=== PATIENT | male | born 1965 | race Caucasian/White ===

== ENCOUNTER 2024-08-03 14:26 | Outpatient (CLI) | payer BC, SELFPAY ==
--- OUTSIDE RECORDS SUMMARY | 2024-08-03 14:31 | XMS_ITS | Clinical Summary ---
Author Organization [facility] Address [address] [place] [address] Care Team Providers Care Electric Lift Truck Driver Name Role Phone Unavailable Primary Care Provider Unavailabl e Social History Tobacco Use Types Packs/Day Years Used Date Smoking Tobacco: Never Assessed Sex and Gender Information Value Date Recorded Sex Assigned at Not on file Legal Sex Male 3:01 PM CDT Gender Identity Not on file Sexual Orientation Not on file Plan of Treatment Health Maintenance Due Date Last Done Comments DTAP/TDAP/TD VACCINES (1 - Tdap) 1982 COLORECTAL SCREENING 2008 Colorectal Cancer Screening 2008 FIT-DNA Q 3 years 2008 FIT/FOBT Q 1 year 2008 Flex Sig/CT Colonography Q 5 years 2008 ZOSTER VACCINE (1 of 2) 2013 INFLUENZA VACCINE (#1) 2023 RSV VACCINE (60+ or ) (1 - 1-dose 75+ series) 2038
--- OUTSIDE RECORDS SUMMARY | 2024-08-03 14:31 | XMS_ITS | Referral Summary ---
Author Organization [facility] [place] [address] Address [address] [place] [address] Care Team Providers Care Machine Bender Name Role Phone Tobias Hutchins MD Primary Care Provider Anthony Fernandez PT Unavailable Unavailable Allergies No known active allergies Medications No known medications Active Problems No known active problems Social History Tobacco Use Types Packs/Day Years Used Date Smoking Tobacco: Never Personal Safety Answer Date Recorded Getting School Help Needed Not on file 06/14 Sex and Gender Information Value Date Recorded Sex Assigned at Not on file Legal Sex Male 9:31 AM FURNACE ERECTOR Gender Identity Not on file Sexual Orientation Not on file Last Filed Vital Signs Vital Sign Reading Time Taken Comments Blood Pressure 111/75 12/08/2023 3:44 PM CDT Pulse 66 12/08/2023 3:44 PM CDT Temperature 36.9 C (98.5 F) 04/23/2021 9:49 AM FURNACE ERECTOR Respiratory Rate 12 04/23/2021 9:49 AM FURNACE ERECTOR Oxygen Saturation 97% 04/23/2021 9:49 AM FURNACE ERECTOR Inhaled Oxygen Concentration - - Weight 79.4 kg (175 lb) 12/08/2023 3:44 PM CDT Height 175.3 cm (5' 9 ) 12/08/2023 3:44 PM CDT Body Mass Index 25.84 12/08/2023 3:44 PM CDT Plan of Treatment Not on file Insurance BLUE ACCESS [place] Care Teams Machine Bender Relationship Specialty Start Date End Date Tobias Hutchins MD [address] [facility] [address] [place] [address] PCP - General Family Medicine 04/23/21 Anthony Fernandez, PT Physical Therapist Physical Therapy 12/12/23
--- OUTSIDE RECORDS SUMMARY | 2024-08-03 14:31 | XMS_ITS | Encounter Summary ---
Author Organization [facility] Address [address] [place] [address] Phone Care Team Providers Care Soil Surveyor Name Role Phone Surjit Cordova MD Primary Care Provider [phone] Reason for Visit * Reason Comments Medication Refill Encounter Details Date Type Department Care Team (Late st Contact Info) Description 02/04/2020 Refill [facility] Medical [facility] - Primary Care - [place] [address] [place] [id number] Surjit Cordova MD [address] [place] [address] Medication Refill Social History Tobacco Use Types Packs/Day Years Used Date Smoking Tobacco: Never Smokeless Tobacco: Never PHQ-2 Answer Date Recorded PHQ-2 Score 0 12/15/2018 Sex and Gender Information Value Date Recorded Sex Assigned at Not on file Legal Sex Male 2:53 PM CDT Gender Identity Not on file Sexual Orientation Not on file documented as of this encounter Miscellaneous Notes * Telephone Encounter - Marina Lawrence CMA - 02/04/2020 2:19 PM CST Rerouting HT TEST DATA ACQUISITION TECHNICIAN documented in this encounter Plan of Treatment Not on file documented as of this encounter Visit Diagnoses Not on filedocumented in this encounter Additional Health Concerns Assessment Noted Time PHQ-9 Depression Total Score: 0 09/12/19 19 2:00 PM CDT documented as of this encounter Care Teams Soil Surveyor Relationship Specialty Start Date End Date Surjit Cordova MD [address] [place] [address] PCP - General Internal Medicine 09/11/18 06/18/23 documented as of this encounter
--- OUTSIDE RECORDS SUMMARY | 2024-08-03 14:31 | XMS_ITS | Clinical Summary ---
Author Organization [facility] [address] Address [address] [place] [address] Care Team Providers Care Calendar Control Clerk Blood Bank Name Role Phone Tobias Hutchins MD Primary [...] on file Legal Sex Male 9:31 AM FABRICATION OPERATOR Gender Identity Not on file Sexual Orientation Not on file Obstetrics History Last Filed Vital Signs Vital Sign Reading Time Taken Comments Blood Pressure 111/75 12/08/2023 3:44 PM CDT Pulse 66 12/08/2023 3:44 PM CDT Temperature 36.9 C (98.5 F) 04/23/2021 9:49 AM FABRICATION OPERATOR Respiratory Rate 12 04/23/2021 9:49 AM FABRICATION OPERATOR Oxygen Saturation 97% 04/23/2021 9:49 AM FABRICATION OPERATOR Inhaled Oxygen Concentration - - Weight 79.4 kg (175 lb) 12/08/2023 3:44 PM CDT Height 175.3 cm (5' 9 ) 12/08/2023 3:44 PM CDT Body Mass Index 25.84 12/08/2023 3:44 PM CDT Plan of Treatment Health Maintenance Due Date Last Done Comments Colon Cancer Screening-Colonoscopy 1963 Depression Screening 1963 Hepatitis C Screening 1963 Prostate Cancer Screening-PSA 1963 Hepatitis B Screening 1981 Regular Well Visit/Exam 18-64 1981 Zoster Vaccine (1 of 2) 2013 Covid-19 Vaccine (3 - 2023-2 5 season) 2023 06/18/2020, 05/26/2020 Influenza Vaccine (#1) 2023 0, 01/07/2019 DTaP/Tdap/Td Vaccine (2 - Td or Tdap) 04/01/2029 04/01/2019 Pneumococcal vaccine <65 Aged Out No longer eligible based on patient's age to complete this topic Insurance [place] Care Teams Calendar Control Clerk Blood Bank Relationship Specialty Start Date End Date Tobias Hutchins MD [address] [facility] [address] [place] [address] PCP - General Family Medicine 04/23/21 Anthony Fernandez PT Physical Therapist Physical Therapy 12/12/23
--- OUTSIDE RECORDS SUMMARY | 2024-08-03 14:31 | XMS_ITS | Clinical Summary ---
Author Organization [facility] Address [address] [place] [address] Phone Care Team Providers Care Saw Boss Name Role Phone Unavailable Primary Care Provider Unavailabl e Allergies No known active allergies Medications OMEPRAZOLE PO Take by mouth. Active lisinopril (PRINIVIL, ZESTRIL) 40 MG Tablet TAKE ONE TABLET BY MOUTH ONCE DAILY 90 Tablet 08/10/2020 Active Active Problems Problem Noted Date Diagnosed Date Hyperlipidemia Hypertension, essential GERD (gastroesophageal reflux disease) Immunizations Immunization Administration Dates Next Due Influenza Vaccine greater than 3 yrs 01/07/2019 TDAP Vaccine 04/01/2019 Family History Medical History Relation Name Comments Cancer Father Skin Heart Disease Father PTCA Heart Disease Maternal Grandfather Heart Disease Maternal Grandmother ? Heart Disease Maternal Uncle x2 Relation Name Status Comments Father Maternal Grandfather Maternal Grandmother Maternal Uncle Social History Tobacco Use Types Packs/Day Years Used Date Smoking Tobacco: Never Smokeless Tobacco: Never Tobacco Cessation:Counseling Given: No PHQ-2 Answer Date Recorded PHQ-2 Score 0 12/15/2018 Sex and Gender Information Value Date Recorded Sex Assigned at Not on file Legal Sex Male 2:53 PM CDT Gender Identity Not on file Sexual Orientation Not on file Last Filed Vital Signs Vital Sign Reading Time Taken Comments Blood Pressure 122/78 04/01/2019 8:07 AM CAUSTIC PREPARER Pulse 93 04/01/2019 8:07 AM CAUSTIC PREPARER Temperature 36.8 C (98.3 F) 04/01/2019 8:07 AM CAUSTIC PREPARER Respiratory Rate 12 04/01/2019 8:07 AM CAUSTIC PREPARER Oxygen Saturation 97% 04/01/2019 8:07 AM CAUSTIC PREPARER Inhaled Oxygen Concentration - - Weight 87.7 kg (193 lb 4.8 oz) 04/01/2019 8:07 A M CAUSTIC PREPARER Height 172.7 cm (5' 8 ) 04/01/2019 8:07 AM CAUSTIC PREPARER Body Mass Index 29.39 04/01/2019 8:07 AM CAUSTIC PREPARER Plan of Treatment Health Maintenance Due Date Last Done Comments Hepatitis C Virus (HCV) Screening 1963 Colonoscopy 2008 Colorectal Cancer Screening 2008 Cologuard 2013 Immunochemical Fecal Occult Blood 2013 Pneumococcal Immunization (5 0+ years) (1 of 1 - PCV) 2013 Zoster Immunization (1 of 2) 2013 SARS-COV-2 Immunization (3 - season) 2023 06/18/2020, 05/26/2020 Influenza Immunization (Seas on Ended) 2024 01/07/2019 Respiratory Syncytial Virus (RSV) Immunization (Adult) (1 - 1-dose 75+ series) 2038 PSA Discussion Discontinued 03/09/2018 DTaP/Tdap/Td Immunization Discontinued 04/01/2019 Hepatitis B Immunization Aged Out No longer eligible based on patient's age to complete this topic Meningococcal Immunization (ACWY) Aged Out No longer eligible based on patient's age to complete this topic Rotavirus Immunization Aged Out No lo nger eligible based on patient's age to complete this topic Procedures Procedure Name Priority Date/Time Associated Diagnosis Comments PSA SCREEN Routine 03/09/2018 from Last 3 Months or Most Recently Relevant to Health Maintenance Results * PSA SCREEN (03/09/2018) PSA (PROSTATE SPECIFIC ANTIGEN) 1.8 ng/mL Blood specimen (specimen) 03/09/2018 Miah Roberson DO CHEMISTRY ORDERABLES Final Result from Last 3 Months or Most Recently Relevant to Health Maintenance Insurance [facility]
== END 2024-08-03 14:27 | disposition home or self-care (01) ==
LOC: ANHBWCAUD 14:27
PROVIDERS: PCP Family Medicine; Visit Provider Otolaryngology
DX: H90.3 Sensorineural hearing loss, bilateral (principal); H93.19 Tinnitus, unspecified ear
CPT/HCPCS: 92557; 92567

== ENCOUNTER 2024-10-25 01:58 | Day surgery (SDC) | payer BC, SELFPAY ==
[2024-10-08 12:20] VITALS: BMI 27.1
--- OUTSIDE RECORDS SUMMARY | 2024-10-25 02:01 | XMS_ITS | Clinical Summary ---
Author Organization [facility] [address] Address [address] [place] [address] Care Team Providers Care Farm Loan Representative Name Role Phone Tobias Hutchins MD Primary [...] on file Legal Sex Male 9:31 AM TRACK MAN Gender Identity Not on file Sexual Orientation Not on file Obstetrics History Last Filed Vital Signs Vital Sign Reading Time Taken Comments Blood Pressure 111/75 12/08/2023 3:44 PM CDT Pulse 66 12/08/2023 3:44 PM CDT Temperature 36.9 C (98.5 F) 04/23/2021 9:49 AM TRACK MAN Respiratory Rate 12 04/23/2021 9:49 AM TRACK MAN Oxygen Saturation 97% 04/23/2021 9:49 AM TRACK MAN Inhaled Oxygen Concentration - - Weight 79.4 kg (175 lb) 12/08/2023 3:44 PM CDT Height 175.3 cm (5' 9) 12/08/2023 3:44 PM CDT Body Mass Index [...] season) 2023 06/18/2020, 05/26/2020 Influenza Vaccine (#1) 2024 0, 01/07/2019 DTaP/Tdap/Td Vaccine (2 - Td or Tdap) 04/01/2029 04/01/2019 Pneumococcal vaccine <65 Aged Out No longer eligible based on patient's age to complete this topic Insurance [employer] [place] Care Teams Farm Loan Representative Relationship Specialty Start Date End Date Tobias Hutchins MD [address] [facility] [address] [place] [address] PCP - General Family Medicine 04/23/21 Anthony Fernandez PT Physical Therapist Physical Therapy 12/12/23
--- OUTSIDE RECORDS SUMMARY | 2024-10-25 02:01 | XMS_ITS | Clinical Summary ---
Author Organization [facility] Address [address] [place] [address] Phone Care Team Providers Care Sand Conditioner Machine Name Role Phone Unavailable Primary Care Provider [...] Comments Blood Pressure 122/78 04/01/2019 8:07 AM EYELET MAKER Pulse 93 04/01/2019 8:07 AM EYELET MAKER Temperature 36.8 C (98.3 F) 04/01/2019 8:07 AM EYELET MAKER Respiratory Rate 12 04/01/2019 8:07 AM EYELET MAKER Oxygen Saturation 97% 04/01/2019 8:07 AM EYELET MAKER Inhaled Oxygen Concentration - - Weight 87.7 kg (193 lb 4.8 oz) 04/01/2019 8:07 A M EYELET MAKER Height 172.7 cm (5' 8) 04/01/2019 8:07 AM EYELET MAKER Body Mass Index 29.39 04/01/2019 8:07 AM EYELET MAKER Plan of Treatment Health Maintenance Due Date Last Done Comments Hepatitis C Virus (HCV) Screening 1963 Cologuard 2008 Colonoscopy 2008 Colorectal Cancer Screening 2008 Immunochemical Fecal Occult Blood 2008 Pneumococcal Immunization (5 0+ years) (1 of 1 - PCV) 2013 Zoster Immunization (1 of 2) 2013 SARS-COV-2 Immunization (3 - season) 2023 06/18/2020, 05/26/2020 Influenza Immunization (#1) 2024 01/07/2019 Respiratory Syncytial Virus (RSV) Immunization (Adult) (1 - 1-dose 75+ series) 2038 PSA Discussion Discontinued 03/09/2018 DTaP/Tdap/Td Immunization Discontinued 04/01/2019 Hepatitis B Immunization Aged Out No longer eligible based on patient's age to complete this topic Human Papillomavirus (HPV) Immunization Aged Out No longer eligible based [...] Most Recently Relevant to Health Maintenance Insurance [facility]
--- OUTSIDE RECORDS SUMMARY | 2024-10-25 02:01 | XMS_ITS | Encounter Summary ---
Author Organization [facility] Address [address] [place] [address] Phone Care Team Providers Care Head Of Sales Promotion Name Role Phone Surjit Cordova MD Primary Care Provider [phone] Reason for Visit * Reason Comments Medication Refill Encounter Details Date Type Department Care Team (Late st Contact Info) Description 02/04/2020 Refill [facility] Medical [facility] - Primary Care - [place] [address] [place] [id number] Surjit Cordova MD [address] [place] [address] Medication Refill Social History Tobacco Use Types [...] CMA - 02/04/2020 2:19 PM CST Rerouting NSED PHYSICAL THERAPY ASSISTANT documented in this encounter Plan of Treatment Not on file documented as of this encounter Visit Diagnoses Not on filedocumented in this encounter Additional Health Concerns Assessment Noted Time PHQ-9 Depression Total Score: 0 09/12/19 19 2:00 PM CDT documented as of this encounter Care Teams Head Of Sales Promotion Relationship Specialty Start Date End Date Surjit Cordova MD [address] [place] [address] PCP - General Internal Medicine 09/11/18 06/18/23 documented as of this encounter
--- OUTSIDE RECORDS SUMMARY | 2024-10-25 02:01 | XMS_ITS | Clinical Summary ---
Author Organization [facility] Address [address] [place] [address] Care Team Providers Care Open Hearth Helper Name Role Phone Unavailable Primary Care Provider [...] (1 of 2) 2013 INFLUENZA VACCINE (#1) 2024 RSV VACCINE (60+ or ) (1 - 1-dose 75+ series) 2038
--- OUTSIDE RECORDS SUMMARY | 2024-10-25 02:01 | XMS_ITS | Referral Summary ---
Author Organization [facility] [address] Address [address] [place] [address] Care Team Providers Care Stage Director Name Role Phone Tobias Hutchins MD Primary [...] on file Legal Sex Male 9:31 AM WILDLIFE CONTROL OPERATOR Gender Identity Not on file Sexual Orientation Not on file Last Filed Vital Signs Vital Sign Reading Time Taken Comments Blood Pressure 111/75 12/08/2023 3:44 PM CDT Pulse 66 12/08/2023 3:44 PM CDT Temperature 36.9 C (98.5 F) 04/23/2021 9:49 AM WILDLIFE CONTROL OPERATOR Respiratory Rate 12 04/23/2021 9:49 AM WILDLIFE CONTROL OPERATOR Oxygen Saturation 97% 04/23/2021 9:49 AM WILDLIFE CONTROL OPERATOR Inhaled Oxygen Concentration - - Weight 79.4 kg (175 lb) 12/08/2023 3:44 PM CDT Height 175.3 cm (5' 9) 12/08/2023 3:44 PM CDT Body Mass Index 25.84 12/08/2023 3:44 PM CDT Plan of Treatment Not on file Insurance BLUE ACCESS [place] Care Teams Stage Director Relationship Specialty Start Date End Date Tobias Hutchins MD [address] [facility] [address] [place] [address] PCP - General Family Medicine 04/23/21 Anthony Fernandez, PT Physical Therapist Physical Therapy 12/12/23
[2024-10-25 08:45] VITALS: BP 122/88; PULSE 61; RESP 18; TEMP 36.8; O2SAT 96
--- NOTE | 2024-10-25 08:54 | WPDANESEPPF ---
Anes - Initial Pre Proc Eval Procedure: Operation Date: 10/25/24 09:30 Proposed Procedures p Screening Colonoscopy - Jose Murry DO Date/Time: 10/25/24 08:54 Surgeon: Jose Murry DO Pre Op Diagnosis: Neoplasm screening Patient Data Age: 59 Gender: M Height: 1.73 m Weight: 78.2 kg Last Vital Signs Temp 36.8 C 10/25/24 08:45 Pulse 61 10/25/24 08:45 Resp 18 10/25/24 08:45 BP 122/88 10/25/24 08:45 Pulse Ox 96 10/25/24 08:45 O2 Del Method Room Air 10/25/24 08:45 Allergies Allergy/AdvReac Type Severity Reaction Status Date / Time No Known Allergies Allergy Verified 10/08/24 12:19 Home Medications ?Medication ?Instructions ?Recorded ?Confirmed ?Type ascorbic acid (vitamin C) 500 mg 500 mg PO DAILY 07/10/20 10/25/24 History capsule cholecalciferol (vitamin D3) 25 25 mcg PO DAILY 07/10/20 10/25/24 History mcg (1,000 unit) capsule omeprazole 20 mg capsule,delayed 20 mg PO DAILY 07/10/20 10/25/24 History release vitamin B complex (Super B-50 1 cap PO DAILY 07/10/20 10/25/24 History Complex capsule) antiarthritic combination no.2 900 900 mg PO DAILY 08/05/22 09/06/24 History mg tablet (glucosamine-chondroitin) zinc gluconate 30 mg tablet 30 mg PO DAILY 08/05/22 10/25/24 History simvastatin 20 mg tablet 20 mg PO DAILY #90 tabs 08/11/24 10/25/24 Rx lisinopril 40 mg tablet 40 mg PO DAILY #90 tabs 09/30/24 10/25/24 Rx Patient hx anesthesia problems: none Family hx anesthesia problems: none Results Review: All pre-operative results and documents have been reviewed as part of the pre-operative evaluation. [facility] Past Medical History Medical History History of kidney stones GERD (gastroesophageal reflux disease) HTN (hypertension) Surgical History Surgical History History of tonsillectomy Family History Family History Father Heart disease Sibling Hypertension Social History Social History Smoking status: Never smoker Second hand tobacco smoke exposure: No Alcohol intake: current Drinks per week: 2 Substance use: never Substance use type: does not use Living arrangements: with family Occupation/Education: occupation Gender identity (if verbalized by the patient): Male Sexual Orientation (if Verbalized by the Patient): Straight or Heterosexual Spiritual care concerns: No Anes - Eval Final PreProcedure Day of Procedure 10/25/24 08:54 Patient weight: overweight Heart: regular rate and rhythm Lungs: clear to auscultation Airway: Mallampati scale class II Neurological: alert and oriented Last oral intake: >/= 8 hours ASA classification: II Emergent: no Anesthetic plan: proceed Anesthesia type and monitoring: general GIVS and standard monitoring Results Review: All pre-operative results and documents have been reviewed as part of the pre-operative evaluation. Informed Consent: The patient's anesthetic plan and its attendant risks and benefits were discussed with the patient/family/POA. Questions were solicited and answers provided to the satisfaction of the patient/family/POA.
[2024-10-25] MEDS: LACTATED RINGERS 1,000 ML 150 ML IV CONT (08:55)
--- NOTE | 2024-10-25 09:06 | PM.IMHP ---
H&P: HPI History of Present Illness Date/Time: 10/25/24 09:06 Chief Complaint: screening for colorectal cancer Narrative: this is a 59-year-old man who presents for. His last colonoscopy was 10 years ago and was normal. He denies any hematochezia or melena. He denies any family history cancer. Review of Systems Review of Systems: All systems reviewed & are unremarkable except as noted in HPI and below Constitutional: Constitutional: Denies chills, Denies fever(s), Denies headache(s) and Denies weight loss Eyes: Eyes: Denies change in vision ENT: Denies dizziness, Denies headache(s), Denies neck mass and Denies throat swelling Cardiovascular: Cardiovascular: Denies chest pain, Denies lightheadedness and Denies dyspnea Respiratory: Respiratory: Denies cough, Denies dyspnea and Denies wheezing Gastrointestinal: Gastrointestinal: Denies abdominal pain, Denies change in bowel habits, Denies nausea and Denies vomiting Genitourinary: Genitourinary: Denies hematuria and Denies dysuria Musculoskeletal: Musculoskeletal: Reports as per HPI Integumentary/Breasts: Skin/Breast: Reports as per HPI Neurologic: Denies dizziness and Denies headache(s) Allergic/Immunologic: Allergic/Immunologic: Denies throat swelling and Denies wheezing PMFSH Past Medical History Medical History History of kidney stones GERD (gastroesophageal reflux disease) HTN (hypertension) Surgical History Surgical History History of tonsillectomy Family History Family History Father Heart disease Sibling Hypertension Social History Social History Smoking status: Never smoker Second hand tobacco smoke exposure: No Alcohol intake: current Drinks per week: 2 Substance use: never Substance use type: does not use Living arrangements: with family Occupation/Education: occupation Gender identity (if verbalized by the patient): Male Sexual Orientation (if Verbalized by the Patient): Straight or Heterosexual Spiritual care concerns: No Meds Home Medications and Allergies Home Medications ?Medication ?Instructions ?Recorded ?Confirmed ?Type ascorbic acid (vitamin C) 500 mg 500 mg PO DAILY 07/10/20 10/25/24 History capsule cholecalciferol (vitamin D3) 25 25 mcg PO DAILY 07/10/20 10/25/24 History mcg (1,000 unit) capsule omeprazole 20 mg capsule,delayed 20 mg PO DAILY 07/10/20 10/25/24 History release vitamin B complex (Super B-50 1 cap PO DAILY 07/10/20 10/25/24 History Complex capsule) antiarthritic combination no.2 900 900 mg PO DAILY 08/05/22 09/06/24 History mg tablet (glucosamine-chondroitin) zinc gluconate 30 mg tablet 30 mg PO DAILY 08/05/22 10/25/24 History simvastatin 20 mg tablet 20 mg PO DAILY #90 tabs 08/11/24 10/25/24 Rx lisinopril 40 mg tablet 40 mg PO DAILY #90 tabs 09/30/24 10/25/24 Rx Allergies Allergy/AdvReac Type Severity Reaction Status Date / Time No Known Allergies Allergy Verified 10/08/24 12:19 Vital Signs Vital Signs - 24 hr 10/25/24 08:45 Temperature 98.3 F Pulse Rate 61 Respiratory Rate 18 Blood Pressure 122/88 Pulse Oximetry 96 Oxygen Delivery Room Air Exam Const: General: no acute distress and alert Orientation/consciousness: patient oriented x3 HENMT: Head: normocephalic and atraumatic Ears: hearing grossly normal bilaterally Face/Nose/Sinus: Normal nares present Mouth: Yes Normal oral and palatal mucosa present Eyes: Periorbital: periorbital findings normal Sclera: sclerae normal EOM: EOMs intact bilaterally Neck: Neck: normal visual inspection, no lymphadenopathy and trachea midline Chest: Chest palpation & inspection: normal inspection of the chest Resp: Effort & Inspection: normal respiratory effort Auscultation: clear to auscultation bilaterally Cardio: Jugular venous distension: no JVD Rate: regular rate Rhythm: regular rhythm Heart sounds: S1 normal heart sound present and S2 normal heart sound present Peripheral pulses: Peripheral pulses 2+ throughout GI: Inspection: normal to inspection GI Palp: Yes Soft to palpation, No Tenderness to palpation present (GI), No Guarding due to palpation present (GI) and No Rebound tenderness present Percussion: Yes normal to percussion Auscultation: normal bowel sounds : General: Yes no CVA tenderness Back/Spine/Pelvis: Back: no CVA tenderness Neuro: General: patient oriented x3, no focal motor deficits and CN's II-XI intact bilaterally Cognition (Neuro): normal cognition Speech: normal speech Motor exam (neuro): 5/5 motor strength present throughout Extrem: General: capillary refill normal and no clubbing, cyanosis or edema Assessment and Plan Assessment and plan (1) Screening for colorectal cancer: Code(s): Z12.11 - Encounter for screening for malignant neoplasm of colon; Z12.12 - Encounter for screening for malignant neoplasm of rectum Status: Acute Assessment and Plan: I have recommended colonoscopy. I have discussed the procedure, risks, benefits, and alternatives. Questions were answered. Patient is agreeable to proceed.
[2024-10-25 09:29] VITALS: BP 105/73; PULSE 60; RESP 18; O2SAT 97
[2024-10-25 09:39] VITALS: BP 107/72; PULSE 60; RESP 18; O2SAT 96
[2024-10-25 09:45] VITALS: BP 114/79; PULSE 60; RESP 18; O2SAT 97
== END 2024-10-25 10:00 | disposition home or self-care (01) ==
PROVIDERS: PCP Family Medicine; Visit Provider Surgery
PROC: 0DJD8ZZ Inspection of Lower Intestinal Tract, Via Natural or Artificial Opening Endoscopic (ICD-10-PCS; CPT 45378; principal; 2024-10-25 09:30)
DX: Z12.11 Encounter for screening for malignant neoplasm of colon (principal); K57.30 Diverticulosis of large intestine without perforation or abscess without bleeding; I10 Essential (primary) hypertension; K21.9 Gastro-esophageal reflux disease without esophagitis; Z98.890 Other specified postprocedural states; Z87.442 Personal history of urinary calculi; Z82.49 Family history of ischemic heart disease and other diseases of the circulatory system
CPT/HCPCS: 45378; J2704; J7120